=== PATIENT | female | born 1930 | race Caucasian/White ===

== ENCOUNTER 2017-03-09 10:17 | Emergency (ER) | payer MEDICARE ==
[2017-03-09 11:02] LABS: BASOPHILS 0.7 % (0.0-2.0); EOSINOPHILS 0.5 % (0.0-6.0); HEMATOCRIT 38.1 % (36.0-48.0); HEMOGLOBIN 12.3 g/dL (12.0-16.0); LYMPHOCYTES 27.8 % (20.0-40.0); LYMPHOCYTES# 0.9 X 10^3uL (0.8-3.8); MEAN CELL VOLUME 83.2 fL (80.0-100.0); MEAN CORPUS. HGB CONCENTRATION 32.4 g/dL (32.0-36.0); MEAN CORPUSCULAR HEMOGLOBIN 26.9 pg (29.0-35.0); MEAN PLATELET VOLUME 8.8 fL (7.4-10.4); MONOCYTES 14.1 % (2.0-10.0); MONOCYTES# 0.5 X 10^3uL (0.2-1.0); NEUTROPHILS 56.9 % (54.0-75.0); NEUTROPHILS# 1.9 X 10^3uL (2.6-6.7); PLATELET COUNT 222 X 10^3uL (130-440); RED BLOOD COUNT 4.58 X 10^6uL (4.20-6.10); RED CELL DISTRIBUTION WIDTH 13.6 % (11.5-14.5); WHITE BLOOD COUNT 3.3 X 10^3uL (3.9-10.7)
[2017-03-09 11:15] LABS: BLOOD UREA NITROGEN 9 mg/dL (7-17); CALCIUM 8.7 mg/dL (8.4-10.2); CHLORIDE 105 mmol/L (98-107); CREATININE 0.6 mg/dL (0.5-1.0); GLUCOSE 110 mg/dL (70-100); POTASSIUM 3.1 mmol/L (3.5-5.1); SODIUM 140 mmol/L (137-145)
[2017-03-09] MEDS ORDERED: POTASSIUM EFF 25 MEQ TABLET ONE (12:16)
[2017-03-09 12:17] LABS: URINE MUCUS NONE SEEN (Up to 25%); URINE RBC NONE SEEN (0-5/hpf); URINE SQUAMOUS EPITHELIAL CELL NONE SEEN (<= 15/hpf); URINE WBC NONE SEEN (0-4/hpf)
--- NOTE | 2017-03-09 12:28 | ER NURSING DOCUMENTATION ---
Nurse's Notes [facility] Name:Alisson Tyler Age:86 yrs Sex:Female :1930 Arrival Date:03/09/2017 Time:10:17 Bed3 Private MD:Scooter Thao Diagnosis:Bladder Infection (UTI);Dehydration Presentation: 03/09 10:20 Acuity: LIV 3 st 10:26 Presenting complaint: Patient states: Patient c/o weakness and fatigue for one week. rh Transition of care: [facility]. 10:26 Method Of Arrival: Private Vehicle Triage Assessment: 10:31 The onset of the patients symptoms was more than six hours ago. General: Appears in no rh apparent distress, Behavior is cooperative. General: Denies fever, chills. Pain: Denies pain. EENT: Oral mucosa is moist. Neuro: Level of Consciousness is awake, alert, Oriented to person, place, event, Reports weakness since March 02 Denies dizziness, headache. Cardiovascular: Capillary refill < 3 seconds Chest pain is denied. Respiratory: Airway is patent Respiratory effort is even, unlabored, Respiratory pattern is regular, symmetrical, Breath sounds are clear bilaterally. Denies shortness of breath. GI: Abdomen is non- distended Abd is soft and non tender X 4 quads. Denies diarrhea, nausea, vomiting. : Denies burning with urination. Derm: Skin is intact, is healthy with good turgor, Skin is pink, warm & dry. Musculoskeletal: Circulation, motion, and sensation intact Range of motion intact in all extremities. Historical: - Allergies: No known drug Allergies; - Home Meds: 1. Omeprazole Oral 2. Iron CR Oral 3. Vitamin B-12 oral chew 4. Ocuvite oral tab 5. Acetaminophen Oral 6. Synthroid Oral - PMHx: Anemia; COLON POLYPS; HYPOTHYROIDISM; OSTEOARTHRITIS; OSTEOPOROSIS; - PSHx: Hysterectomy; Knee surgery; - Tetanus: < 10 years. - Ebola Screening: : Patient negative for fever greater than or equal to 101.5 degrees Fahrenheit, and additional compatible Ebola Virus Disease symptoms. - Immunization history: Flu Vaccine < 1 year. - Social history: Smoking status: Patient states was never smoker of tobacco. Screenin:32 Infectious Disease Risk None. Abuse screen: Denies threats or abuse. Denies injuries rh from another. Nutritional screening: No deficits noted. Assessment: 10:32 See Triage Assessment done by same RN. rh Vital Signs: 10:21 BP 170 / 88 RA Sitting (auto/reg); Pulse 93 LA; Resp 18 S; Temp 98.0(O); Pulse Ox 91% em3 on R/A; Weight 63.5 kg (R); Height 5 ft. 5 in. (165.10 cm) (R); 11:35 BP 153 / 76; Pulse 84; Resp 16; Pulse Ox 96% on R/A; rh 12:13 BP 168 / 69; Pulse 79; Resp 16; Pulse Ox 95% on R/A; rh 10:21 Body Mass Index 23.30 (63.50 kg, 165.10 cm) em3 NIH Stroke Scale Scores: 11:00 NIHSS Score: 0 ED Course: 10:18 Patient arrived in ED. lm3 10:18 Scooter Thao MD is Private Physician. lm3 10:18 Notified ED Physician of patient's arrival and chief complaint. Dr. Miller notified. rh 10:[address] 10:22 Valuables Remains with patient Patient has correct armband on for positive em3 identification. Placed in gown. Bed in low position. Call light in reach. Side rails up X2. 10:23 Roscoe Miller MD is Attending Physician. sc 10:26 Daniela Higgins is Primary Nurse. rh 10:29 Urine collected. Clean catch specimen. em3 10:50 Inserted peripheral IV: 20 gauge in left antecubital area and blood collected. rh 11:45 Assisted to bathroom. rh 12:17 Scooter Thao MD is Referral Physician. sc 12:17 Assisted to bathroom. rh Administered Medications: 11:00 Drug: NS 0.9% 1000 ml; Route: IV; Rate: bolus; Site: left antecubital; rh 11:45 Follow up: IV Status: Completed infusion; IV Intake: 1000ml rh 11:45 Drug: NS 0.9% 1000 ml; Route: IV; Rate: bolus; Site: left antecubital; rh 12:15 Follow up: IV Status: Completed infusion; IV Intake: 1000ml rh 12:07 Drug: K-Lyte Effervescent Tablet 50 mEq; Route: PO; rh 12:13 Follow up: Response: No adverse reaction rh Point of Care Testing: Urine Dip: 12:07 pH: 7.0; ; Specific Brady: 1.015; Ketones: Negative; Glucose: Negative; Protein: em3 Negative; Leukocytes: Trace; Nitrite: Positive (+) ; Blood: Negative; Bilirubin: Negative ; Urobilinogen: Normal Intake: 11:45 IV: 1000ml; Total: 1000ml. rh 12:15 IV: 1000ml; Total: 2000ml. rh Outcome: 12:18 Discharge ordered by . ak 12:26 Discharged to home via wheelchair, with friend. 12:26 Condition: improved 12:26 Discharge Assessment: Patient awake, alert and oriented x 3. No cognitive and/or functional deficits noted. Patient verbalized understanding of disposition instructions. 12:26 Discharge instructions given to patient, friend, Instructed on discharge instructions, follow up and referral plans. medication usage, Demonstrated understanding of instructions, medications, Prescriptions given X 1. 12:26 IV D/Vikash 12:27 Patient left the ED. 03/10 11:53 Discharge F/U Call: Spoke with: patient. Have you filled your prescriptions? yes. Did lc your discharge instructions answer all of your questions? yes Overall Care on a scale of 1-10 with 10 being the best care, you rate our care as: Other comments: FEELING BETTER, HAS NO QUESTIONS What is the one thing you feel we could do to improve? NIH Stroke Scale - NIH Stroke Score Date: 03/09/2017 Time: 11:00 Total Score = 0 1a. Level of Consciousness (LOC) - 0(Alert) 1b. Level of Consciousness (LOC) (Year & Age) - 0(Both) 1c. LOC Commands (Open & Closes Eyes/Cook Tortilla) - 0(Both) 2. Best Gaze (Lateral Gaze Paresis) - 0(Normal) 3. Visual Field Loss - 0(No visual loss) 4. Facial Palsy - 0(Normal) 5a. Left Arm: Motor (10-second hold) - 0(No drift) 5b. Right Arm: Motor (10-second hold) - 0(No drift) 6a. Left Leg: Motor (5-second hold ? always test supine) - 0(No drift) 6b. Right Leg: Motor (5-second hold ? always test supine) - 0(No drift) 7. Limb Ataxia (finger/nose & heel/cabrera ? test with eyes open) - 0(Absent) 8. Sensory Loss (pinprick arms/legs/face) - 0(Normal) 9. Best Language: Aphasia (description/naming/reading) - 0(No aphasia) 10. Dysarthria (speech clarity ? read or repeat words) - 0(Normal) 11. Extinction and Inattention (visual/tactile/auditory/spatial/personal) - 0(No abnormality) Initials: Signatures: Samantha Meza RN RN st Coleman, Linda, RN RN lc Chew, Scott, MD MD sc Meiklejohn, Saurabh [email or web address] Daniela Higgins Charlotte Tran [email or web address]
--- NOTE | 2017-03-09 12:28 | ER PHYSICIAN DOCUMENTATION ---
Physician Documentation [facility] Name:Alisson Tyler Age:86 yrs Sex:Female :1930 Arrival Date:03/09/2017 Time:10:17 Bed3 Private MD:Scooter Thao EDrockRoscoe Disposition: 03/09/17 12:18 Discharged to Home/Self Care. Impression: Bladder Infection (UTI), Dehydration. - Condition is Good. - Discharge Instructions: BLADDER INFECTION, Female (Adult), DEHYDRATION (6y-Adult). - Prescriptions for Macrobid 100 mg Oral Capsule - take 100 milligram by ORAL route every 12 hours for 10 days; 20 capsule. - Medical Reconciliation form form. - Follow up: Scooter Thao MD; When: 1 week; Reason: Recheck today's complaints. - Problem is new. - Symptoms have improved. HPI: 03/09 12:14 This 86 yrs old Female presents to ER via Private Vehicle with complaints of sc Weakness. 12:14 gradually weaker over last week, walking eating drinking caring for self fine just sc feeling more tired each day. Onset: The symptom(s)/episode began/occurred 1 week(s) ago. Severity of symptoms: At their worst the symptoms were mild. The patient has not experienced similar symptoms in the past. The patient has been recently seen by a physician: the patient's primary care provider. Historical: - Allergies: No known drug Allergies; - Home Meds: 1. Omeprazole Oral 2. Iron CR Oral 3. Vitamin B-12 oral chew 4. Ocuvite oral tab 5. Acetaminophen Oral 6. Synthroid Oral - PMHx: Anemia; COLON POLYPS; HYPOTHYROIDISM; OSTEOARTHRITIS; OSTEOPOROSIS; - PSHx: Hysterectomy; Knee surgery; - Tetanus: < 10 years. - Ebola Screening: : Patient negative for fever greater than or equal to 101.5 degrees Fahrenheit, and additional compatible Ebola Virus Disease symptoms. - Immunization history: Flu Vaccine < 1 year. - Social history: Smoking status: Patient states was never smoker of tobacco. ROS: 12:15 Eyes: Negative for injury, pain, redness, and discharge. sc ENT: Negative for injury, pain, and discharge. Neck: Negative for injury, pain, and swelling. Cardiovascular: Negative for chest pain, palpitations, and edema. Respiratory: Negative for shortness of breath, cough, wheezing, and pleuritic chest pain. Abdomen/GI: Negative for abdominal pain, nausea, vomiting, diarrhea, and constipation. Back: Negative for injury and pain. MS/Extremity: Negative for injury and deformity. Skin: Negative for injury, rash, and discoloration. 12:15 Neuro: Negative for headache, weakness, numbness, tingling, and seizure. sc 12:15 Constitutional: Positive for fatigue. Exam: Constitutional: This is a well developed, well nourished patient who is awake, alert, and in no acute distress. Head/Face: Normocephalic, atraumatic. Eyes: Pupils equal round and reactive to light, extra-ocular motions intact. Lids and lashes normal. Conjunctiva and sclera are non-icteric and not injected. Cornea within normal limits. Periorbital areas with no swelling, redness, or edema. ENT: Nares patent. No nasal discharge, no septal abnormalities noted. Tympanic membranes are normal and external auditory canals are clear. Oropharynx with no redness, swelling, or masses, exudates, or evidence of obstruction, uvula midline. Mucous membranes moist. Neck: Trachea midline, no thyromegaly or masses palpated, and no cervical lymphadenopathy. Supple, full range of motion without nuchal rigidity, or vertebral point tenderness. No meningismus. Chest/axilla: Normal chest wall appearance and motion. Nontender with no deformity. No lesions are appreciated. Cardiovascular: Regular rate and rhythm with a normal S1 and S2. No gallops, murmurs, or rubs. Normal PMI, no JVD. No pulse deficits. Respiratory: Lungs have equal breath sounds bilaterally, clear to auscultation and percussion. No rales, rhonchi or wheezes noted. No increased work of breathing, no retractions or nasal flaring. Abdomen/GI: Soft, non-tender, with normal bowel sounds. No distension or tympany. No guarding or rebound. No evidence of tenderness throughout. Back: No spinal tenderness. No costovertebral tenderness. Full range of motion. Skin: Warm, dry with normal turgor. Normal color with no rashes, no lesions, and no evidence of cellulitis. MS/ Extremity: Pulses equal, no cyanosis. Neurovascular intact. Full, normal range of motion, negative Homans's, calves equal bilaterally. 12:15 Neuro: Awake and alert, GCS 15, oriented to person, place, time, and situation. ms Cranial nerves II-XII grossly intact. Motor strength 5/5 in all extremities. Sensory grossly intact. Cerebellar exam normal. Normal gait. 12:18 Abdomen/GI: Inspection: abdomen appears normal, Bowel sounds: normal, Palpation: ms abdomen is soft and non-tender. 12:18 Respiratory: Respirations: normal, Breath sounds: are normal, clear throughout. ms Vital Signs: 10:21 BP 170 / 88 RA Sitting (auto/reg); Pulse 93 LA; Resp 18 S; Temp 98.0(O); Pulse Ox 91% em3 on R/A; Weight 63.5 kg (R); Height 5 ft. 5 in. (165.10 cm) (R); 11:35 BP 153 / 76; Pulse 84; Resp 16; Pulse Ox 96% on R/A; rh 12:13 BP 168 / 69; Pulse 79; Resp 16; Pulse Ox 95% on R/A; rh 10:21 Body Mass Index 23.30 (63.50 kg, 165.10 cm) em3 NIH Stroke Scale Scores: 11:00 NIHSS Score: 0 rh MDM: 10:23 Patient medically screened. ms 12:16 Differential Diagnosis altered mental status, sepsis, flu. Data reviewed: vital signs, ms nurses notes, old medical records, lab test result(s), and as a result, I will continue to observe the patient, administer antibiotics administer IV fluids. Counseling: I had a detailed discussion with the patient and/or guardian regarding: the historical points, exam findings, and any diagnostic results supporting the discharge/admit diagnosis, lab results. 03/09 11:17 Order name: BASIC METABOLIC PANEL; Complete Time: [facility] 03/09 11:27 Interpretation: Normal Except: POTASSIUM 3.1. ms 03/09 11:18 Order name: CBC AUTO DIF, MDIF/RMOR IF IND; Complete Time: [facility] 03/09 11:27 Interpretation: Normal Except: WHITE BLOOD COUNT 3.3. ms 03/09 12:57 Order name: UA W/ MICRO -CULTURE IF IND [facility] 03/09 12:57 Order name: URINE DRUG SCREEN, QUAL [facility] 03/10 07:20 Order name: URINE CULTURE [facility] 03/11 08:42 Order name: NEGATIVE SENSITIVITY PANEL [facility] 03/09 10:23 Order name: Urine Dip; Complete Time: ms 03/09 10:38 Order name: 12-lead EKG; Complete Time: 03/09 10:38 Order name: Continuous Cardiac Monitoring; Complete Time: 03/09 10:38 Order name: I & O; Complete Time: 03/09 10:38 Order name: Iv Saline Lock; Complete Time: 03/09 10:38 Order name: NIH Stroke Scale; Complete Time: 03/09 10:38 Order name: Pulse Ox Continuous; Complete Time: Dispensed Medications: 11:00 Drug: NS 0.9% 1000 ml; Route: IV; Rate: bolus; Site: left antecubital; rh 11:45 Follow up: IV Status: Completed infusion; IV Intake: 1000ml rh 11:45 Drug: NS 0.9% 1000 ml; Route: IV; Rate: bolus; Site: left antecubital; rh 12:15 Follow up: IV Status: Completed infusion; IV Intake: 1000ml rh 12:07 Drug: K-Lyte Effervescent Tablet 50 mEq; Route: PO; rh 12:13 Follow up: Response: No adverse reaction Point of Care Testing: Urine Dip: 12:07 pH: 7.0; ; Specific May: 1.015; Ketones: Negative; Glucose: Negative; Protein: em3 Negative; Leukocytes: Trace; Nitrite: Positive (+) ; Blood: Negative; Bilirubin: Negative ; Urobilinogen: Normal NIH Stroke Scale - NIH Stroke Score Date: 03/09/2017 Time: 11:00 Total Score = 0 1a. Level of Consciousness (LOC) - 0(Alert) 1b. Level of Consciousness (LOC) (Year & Age) - 0(Both) 1c. LOC Commands (Open & Closes Eyes/Hub Inventory Specialist) - 0(Both) 2. Best Gaze (Lateral Gaze Paresis) - 0(Normal) 3. Visual Field Loss - 0(No visual loss) 4. Facial Palsy - 0(Normal) 5a. Left Arm: Motor (10-second hold) - 0(No drift) 5b. Right Arm: Motor (10-second hold) - 0(No drift) 6a. Left Leg: Motor (5-second hold ? always test supine) - 0(No drift) 6b. Right Leg: Motor (5-second hold ? always test supine) - 0(No drift) 7. Limb Ataxia (finger/nose & heel/cabrera ? test with eyes open) - 0(Absent) 8. Sensory Loss (pinprick arms/legs/face) - 0(Normal) 9. Best Language: Aphasia (description/naming/reading) - 0(No aphasia) 10. Dysarthria (speech clarity ? read or repeat words) - 0(Normal) 11. Extinction and Inattention (visual/tactile/auditory/spatial/personal) - 0(No abnormality) Initials: rh Signatures: Roscoe Miller MD MD sc Hofsess, Rachel
[2017-03-09 13:01] LABS: URINE APPEARANCE SLIGHTLY CLOUDY; URINE COLOR YELLOW; URINE LEUKOCYTE ESTERASE TRACE (NEGATIVE); URINE SPECIFIC GRAVITY 1.015 (0.001-1.035)
[2017-03-09 13:02] LABS: URINE GLUCOSE NORMAL (NEGATIVE); URINE KETONE NEGATIVE (NEGATIVE); URINE PROTEIN NEGATIVE (NEG - TRACE); URINE UROBILINOGEN 0.2mg/dL (Normal) (NEG-1mg/dL)
[2017-03-09 13:03] LABS: URINE BILIRUBIN NEGATIVE (NEGATIVE)
[2017-03-09 13:04] LABS: URINE BACTERIA <10 ORGANISMS/hpf (<10/hpf); URINE BLOOD NEGATIVE (NEGATIVE)
[2017-03-09 13:12] LABS: URINE NITRITE POSITIVE (NEGATIVE)
== END 2017-03-09 12:27 | disposition home or self-care (01) ==
LOC: ER 10:17
DX: E86.0 Dehydration (principal); R53.1 Weakness; N39.0 Urinary tract infection, site not specified; B96.20 Unspecified Escherichia coli [E. coli] as the cause of diseases classified elsewhere; R53.83 Other fatigue; Z79.899 Other long term (current) drug therapy
CPT/HCPCS: 80048; 80305; 81001; 85025; 87077; 87086; 87186; 93005; 96360; 99283; 99284